=== PATIENT | female | born 1995 | race Caucasian/White ===

== ENCOUNTER 2018-11-19 18:35 | Emergency (ER) | payer SELFPAY ==
[~2018-11-19] VITALS: Ht 172.7 cm; Wt 83.0 kg
[2018-11-19 18:40] VITALS: BP 136/82
== END 2018-11-19 20:27 | disposition home or self-care (01) ==
LOC: ED 20:13
DX: S93.491A Sprain of other ligament of right ankle, initial encounter (principal); W01.0XXA Fall on same level from slipping, tripping and stumbling without subsequent striking against object, initial encounter; Y93.89 Activity, other specified; Y92.828 Other wilderness area as the place of occurrence of the external cause; Y99.8 Other external cause status
CPT/HCPCS: 99283

== ENCOUNTER 2019-08-16 06:25 | Emergency (ER) | payer SELFPAY ==
[~2019-08-16] VITALS: Ht 172.7 cm; Wt 87.5 kg
--- NOTE | 2019-08-16 06:40 | NUR ---
REPORTS INTERMITTENT VOMITING SINCE SUNDAY. REPORTS THIS HAPPENS TO HER WHEN SHE STOPS SMOKING MARIJUANA. REPORTS PANIC ATTACKS DUE TO VOMITING. DENIES ANY ALCOHOL OR ANY OTHER DRUG USE. NO FEVERS OR SHORTNESS OF BREATH.
--- NOTE | 2019-08-16 06:42 | NUR ---
REPORTS BEING SEEN AT [facility] YESTERDAY AND WAS GIVEN ZOFRAN AND ATIVAN. REPORTS FEELING BETTER UPON DISCHARGE AND THEN VOMITING AGAIN THIS MORNING. NO ABDOMINAL PAIN. LMP 08/01
--- NOTE | 2019-08-16 06:50 | NUR ---
HANDOFF GIVEN TO LORETTA LOPEZ
[2019-08-16] MEDS ORDERED: LORazepam 2 MG/ML, 1ML IVPush ONE (07:00)
[2019-08-16] MEDS ORDERED: SODIUM CHLORIDE 0.9% 1,000 ML IV ONE (07:00)
[2019-08-16] MEDS ORDERED: ONDANSETRON 2MG/ML, 2ML IVPush ONE (07:00)
[2019-08-16] MEDS ORDERED: ONDANSETRON 2MG/ML, 2ML ONE (07:18)
[2019-08-16] MEDS ORDERED: LORazepam 2 MG/ML, 1ML ONE (07:18)
--- NOTE | 2019-08-16 07:24 | NUR ---
PT RESTING IN BED, MEDICATED ORDERD. CALL LIGHT IN REACH
[2019-08-16 08:32] VITALS: BP 131/80
--- NOTE | 2019-08-16 08:40 | NUR ---
DISCHARGE INSTRUCTIONS REVIEWED
== END 2019-08-16 08:46 | disposition home or self-care (01) ==
LOC: ED 07:49
DX: F41.0 Panic disorder [episodic paroxysmal anxiety] (principal); R11.2 Nausea with vomiting, unspecified; R00.0 Tachycardia, unspecified
CPT/HCPCS: 93005; 96361; 96374; 96375; 99284; J2060; J2405; J7030

== ENCOUNTER 2019-08-19 06:08 | Emergency (ER) | payer SELFPAY ==
[~2019-08-19] VITALS: Ht 172.7 cm; Wt 88.5 kg
--- NOTE | 2019-08-19 06:27 | NUR ---
Pt ambulated to room 18 c/o n/v and decreased appetite approx 1 week. Pt states she was dx with cannabinoid hyperemesis syndrome approx 2 years ago. Pt states she resumed smoking approx 2 months before symptoms started. Pt has not smoked in 1 week. Pt states when she gets nausea, she starts to have panic attacks. Pt states she was given haldol and benadryl in the past with decrease in symptoms. Pt seen this week for same sx and dx with UTI as well. Pt has not been taking antibiotics because she cannot tolerate PO intake.
[2019-08-19] MEDS ORDERED: HALOPERIDOL 5 MG/ML IM STA (06:43)
--- NOTE | 2019-08-19 06:56 | NUR ---
report received from remy saucedo.
[2019-08-19] MEDS ORDERED: HALOPERIDOL 5 MG/ML ONE (06:59)
[2019-08-19] MEDS ORDERED: DIPHENHYDRAMINE 50 MG/ML, 1ML ONE (06:59)
[2019-08-19] MEDS ORDERED: SODIUM CHLORIDE FLUSH 10ML SYR IVF ONE (07:00)
[2019-08-19] MEDS ORDERED: SODIUM CHLORIDE 0.9% 1,000ML IVBOLUS ONE (07:00)
[2019-08-19] MEDS ORDERED: MAALOX/HYOSCYAMINE/LIDOCAINE 45 ML BTL ONE (07:00)
[2019-08-19] MEDS ORDERED: DIPHENHYDRAMINE 50 MG/ML, 1ML IV ONE (07:00)
[2019-08-19] MEDS ORDERED: MAALOX/HYOSCYAMINE/LIDOCAINE 45 ML BTL PO ONE (07:00)
[2019-08-19 07:04] LABS: BASOPHILS # (AUTO) 0.04 x10^3/uL (0-0.1); BASOPHILS % (AUTO) 0 % (0-1); EOSINOPHILS # (AUTO) 0.02 x10^3/uL (0-0.4); EOSINOPHILS % (AUTO) 0 % (1-7); LYMPHOCYTES # (AUTO) 1.79 x10^3/uL (1-3.4); LYMPHOCYTES % (AUTO) 16 % (22-44); MD NO; MEAN CORPUSCULAR HEMOGLOBIN 28.8 pg (27.0-34.8); MEAN CORPUSCULAR HGB CONC 32.9 g/dL (32.4-35.8); MEAN CORPUSCULAR VOLUME 87.5 fL (80-100); MEAN PLATELET VOLUME 7.5 fL (7.4-10.4); MONOCYTES # (AUTO) 0.65 x10^3/uL (0.2-0.8); MONOCYTES % (AUTO) 6 % (2-9); NEUTROPHILS # (AUTO) 8.93 x10^3/uL (1.8-6.8); NEUTROPHILS % (AUTO) 78 % (42-75); PLATELET COUNT 392 x10^3/uL (130-400); RED BLOOD COUNT 5.02 x10^6/uL (3.82-5.3); RED CELL DISTRIBUTION WIDTH 14.4 % (9.6-15.2)
[2019-08-19 07:11] LABS: CHLORIDE 99 mmol/L (98-107)
--- NOTE | 2019-08-19 07:14 | NUR ---
pt medicated per emar. pt tolerated well. ns infusing at this time.
[2019-08-19 07:41] LABS: ALANINE AMINOTRANSFERASE 22 U/L (12-78); ALBUMIN 3.8 g/dL (3.4-5.0); ANION GAP 12 mmol/L (5-15); CALCIUM 8.7 mg/dL (8.5-10.1); CREATININE 0.97 mg/dL (0.55-1.02)
[2019-08-19 07:43] LABS: ALKALINE PHOSPHATASE 49 U/L (45-117); BILIRUBIN,TOTAL 0.3 mg/dL (0.2-1.0); TOTAL PROTEIN 7.8 g/dL (6.4-8.2)
[2019-08-19] MEDS ORDERED: POTASSIUM CHLORIDE 20 MEQ TAB.ER.PRT ONE (07:49)
--- NOTE | 2019-08-19 07:53 | NUR ---
pt medicated per emar. pt tolerated well. pt's aox4. resps even and unlabored.
--- NOTE | 2019-08-19 07:54 | NUR ---
pt amb to br with steady gait.
[2019-08-19] MEDS ORDERED: POTASSIUM CHLORIDE 20 MEQ TAB.ER.PRT PO ONE (08:00)
--- NOTE | 2019-08-19 08:02 | NUR ---
pt back to room from with steady gait. pt resting in [facility]. bp/spo2 monitors in place. call light within reach.
--- NOTE | 2019-08-19 08:28 | NUR ---
PT AMB TO BR AND BACK TO ROOM WITH STEADY GAIT.
--- NOTE | 2019-08-19 08:55 | NUR ---
PT RESTING IN [facility]. PT'S AOX4. RESPS EVEN AND UNLABORED. BP/SPO2 MONITORS IN PLACE. CALL LIGHT WITHIN REACH.
[2019-08-19 09:35] VITALS: BP 119/76
--- NOTE | 2019-08-19 09:35 | NUR ---
SOME WATER PROVIDED FOR PO CHALLENGE AT THIS TIME.
--- NOTE | 2019-08-19 09:54 | NUR ---
Patient given discharge instructions and they have confirmed that they understand the instructions. Patient ambulatory with steady gait.
== END 2019-08-19 09:55 | disposition home or self-care (01) ==
LOC: ED 06:59
DX: R10.13 Epigastric pain (principal); R11.2 Nausea with vomiting, unspecified; R11.15 Cyclical vomiting syndrome unrelated to migraine
CPT/HCPCS: 36415; 80053; 83690; 84703; 85025; 96361; 96372; 96374; 99285; J1200; J1630; J7030

== ENCOUNTER 2019-08-22 20:07 | Emergency (ER) | payer SELFPAY ==
[~2019-08-22] VITALS: Ht 172.7 cm; Wt 88.0 kg
--- NOTE | 2019-08-22 20:40 | NUR ---
PT STATES THAT SHE HAS VOMITED SEVERAL TIMES TODAY DUE TO SMOKING MARIJUANA LAST WEEK. PT STATES THIS HAS HAPPENED BEFORE. PT PLACED ON MONITOR. VS STABLE. WILL CONTINUE TO MONITOR.
[2019-08-22] MEDS ORDERED: hydrOXyzine 50MG TABLET ONE (20:51)
[2019-08-22 21:37] VITALS: BP 123/83
--- NOTE | 2019-08-22 22:06 | NUR ---
patient refused ekg.
== END 2019-08-22 22:21 | disposition home or self-care (01) ==
LOC: ED 21:15
DX: F41.1 Generalized anxiety disorder (principal); R11.2 Nausea with vomiting, unspecified; R10.84 Generalized abdominal pain
CPT/HCPCS: 99283; Q0177

== ENCOUNTER 2020-06-11 05:23 | Emergency (ER) | payer SELFPAY ==
[~2020-06-11] VITALS: Ht 172.7 cm; Wt 91.0 kg
--- NOTE | 2020-06-11 05:44 | NUR ---
pt came into ed with c/o hyperemesis d/t cannabis. pt states she has had this before but it has been about 2 months and she had begun using again. pt reports beginning vomitting around 0230 this am and is extremely anxious. pt is restless in room, unable to sit still, also c/o cp starting around the same time. pt states pain goes away with vomitting. placed on spo2/bp/ecg monitoring at this time. Latah VILLANUEVA at bs for eval and poc. provided warm blankets for comfort, [facility]
[2020-06-11] MEDS ORDERED: ZIPRASIDONE 20 MG INJ IM ONE ×2 (05:59→06:00)
[2020-06-11] MEDS ORDERED: PROMETHAZINE 25 MG/ML, 1ML ONE (05:59)
[2020-06-11] MEDS ORDERED: SODIUM CHLORIDE 0.9% 1,000ML IVBOLUS ONE (06:00)
[2020-06-11] MEDS ORDERED: SODIUM CHLORIDE FLUSH 10ML SYR IVF ONE (06:00)
[2020-06-11] MEDS ORDERED: PROMETHAZINE 25 MG/ML, 1ML IM ONE (06:00)
[2020-06-11 06:17] LABS: BASOPHILS % (AUTO) 0 % (0-1); EOSINOPHILS % (AUTO) 0 % (1-7); LYMPHOCYTES % (AUTO) 10 % (22-44); MEAN CORPUSCULAR HEMOGLOBIN 28.8 pg (27.0-34.8); MEAN PLATELET VOLUME 7.9 fL (7.4-10.4); MONOCYTES % (AUTO) 4 % (2-9); NEUTROPHILS % (AUTO) 86 % (42-75); PLATELET COUNT 425 x10^3/uL (130-400); RED BLOOD COUNT 5.31 x10^6/uL (3.82-5.3); RED CELL DISTRIBUTION WIDTH 13.9 % (9.6-15.2)
[2020-06-11 06:18] LABS: MD NO
[2020-06-11 06:30] LABS: ALANINE AMINOTRANSFERASE 40 U/L (12-78); ALBUMIN 4.2 g/dL (3.4-5.0); ANION GAP 9 mmol/L (5-15); CALCIUM 9.1 mg/dL (8.5-10.1); CHLORIDE 107 mmol/L (98-107); CREATININE 1.03 mg/dL (0.55-1.02)
[2020-06-11 06:34] LABS: ALKALINE PHOSPHATASE 63 U/L (45-117); BILIRUBIN,TOTAL 0.5 mg/dL (0.2-1.0); TOTAL PROTEIN 8.4 g/dL (6.4-8.2)
--- NOTE | 2020-06-11 06:40 | NUR ---
PT NAD, RESTING IN GURNEY, APPEARS SIGNIFICANTLY MORE COMFORTABLE AFTER MEDICATIONS. ANXIETY IS DECREASED AND PT IS LESS RESTLESS. VSS, WCTM. CHART UP FOR RECHECK.
--- NOTE | 2020-06-11 06:52 | NUR ---
bedside report to rickie saucedo, pt care transferred at this time
--- NOTE | 2020-06-11 07:08 | NUR ---
ASSUMED CARE, BEDSIDE RERPORT RECEIVED, VITALS STABLE. PT PROVIDED WATER FOR ASSESSMENT OF PO TOLERANCE.
--- NOTE | 2020-06-11 07:32 | NUR ---
Pt tolerates po fluids at this time, ambulates w/ steady gait to BR. Vitals remain stable.
[2020-06-11 07:45] VITALS: BP 129/84
== END 2020-06-11 07:49 | disposition home or self-care (01) ==
LOC: ED 07:27
DX: F12.10 Cannabis abuse, uncomplicated (principal); R11.10 Vomiting, unspecified; R00.0 Tachycardia, unspecified; R07.9 Chest pain, unspecified
CPT/HCPCS: 36415; 80053; 84703; 85025; 93005; 96360; 96372; 99284; J2550; J3486; J7030